=== PATIENT | female | born 1995 | race Caucasian/White ===

== ENCOUNTER 2016-08-05 23:01 | Emergency (ER) | payer BC ==
[2016-08-06 01:29] VITALS: BP 142/87
--- NOTE | 2016-08-08 15:08 | ED ---
Head Injury - HPI Summary HPI Summary: Pt stated that last night she fell down some stone steps and she hit her head on the last step. Pt worked a shift today. Pt denies LOC. Pt states that the spot is tender to touch. Pt states that when she coughs it can be painful ( head). She denies memory loss, confusion, visual disturbances, focal neuro deficits, or abnormal gait. She denies other health problems. She arrives today to make sure she does not have a concussion or something more serious. Denies blood thinners or other medications. No ROY or neck pain. - History Of Current Complaint Chief Complaint: EDHeadInjury Stated Complaint: FALL/HEAD INJURY Time Seen by Provider: 08/05/16 23:51 Hx Obtained From: Patient Mechanism Of Injury: Direct Blow, Fall From A Standing Position Onset/Duration: Started Days Ago Onset of Pain: Hours Severity Currently: Mild Severity Initially: Mild Pain Intensity: 0 Pain Scale Used: 0-10 Numeric Location of Head Injury: Occipital Location: Discrete At: - occipital Alleviating Factor(s): Rest, Ice - Risk Factors SDH Risk Factor: Negative - Allergies/Home Medications Allergies/Adverse Reactions: Allergies Allergy/AdvReac Type Severity Reaction Status Date / Time No Known Allergies Allergy Verified 11/30/14 07:53 PMH/Surg Hx/FS Hx/Imm Hx Previously Healthy: Yes - Immunization History Hx Pertussis Vaccination: No Immunizations Up to Date: Unable to Obtain/Confirm Infectious Disease History: Denies: Traveled Outside the [place] in Last 30 Days - Family History Known Family History: Positive: Cardiac Disease - Social History Occupation: Employed Full-time Lives: With Family Alcohol Use: Daily Alcohol Amount: 2-3 drins Hx Substance Use: No Substance Use Type: Reports: None Hx Tobacco Use: Yes Smoking Status (MU): Current Every Day Smoker Do You Chew or Dip Tobacco: No Have You Chewed or Dipped Tobacco in the LAST YEAR: No Review of Systems Constitutional: Negative Eyes: Negative ENT: Negative Respiratory: Negative Gastrointestinal: Negative Musculoskeletal: Negative Skin: Negative Positive: Headache - only with cough All Other Systems Reviewed And Are Negative: Yes Physical Exam Triage Information Reviewed: Yes Vital Signs On Initial Exam: Initial Vitals Temp Pulse Resp BP Pulse Ox 97.8 F 87 16 142/85 96 08/05/16 23:02 08/05/16 23:02 08/05/16 23:02 08/05/16 23:02 08/05/16 23:02 Vital Signs Reviewed: Yes Appearance: Positive: Well-Appearing, No Pain Distress, Well-Nourished Skin: Positive: Warm, Skin Color Reflects Adequate Perfusion Eyes: Positive: Normal, ROMÁN, Conjunctiva Clear ENT: Positive: TMs normal Respiratory/Lung Sounds: Positive: Clear to Auscultation, Breath Sounds Present Cardiovascular: Positive: Pulses are Symmetrical in both Upper and Lower Extremities Musculoskeletal: Positive: Strength/ROM Intact Neurological: Positive: Sensory/Motor Intact, Alert, Oriented to Person Place, Time, CN Intact II-III, Normal Gait, Speech Normal AVPU Assessment: Alert - [place] Coma Scale Best Eye Response: 4 - Spontaneous Best Motor Response: 6 - Obeys Commands Best Verbal Response: 5 - Oriented Coma Scale Total: 15 Diagnostics - Vital Signs Vital Signs Temp Pulse Resp BP Pulse Ox 08/06/16 00:17 98 F 87 16 142/87 08/05/16 23:02 97.8 F 87 16 142/85 96 - Laboratory Lab Statement: Any lab studies that have been ordered have been reviewed, and results considered in the medical decision making process. Head Injury Course/Dx Course Of Treatment: Patient arrives 24 hours after falling and hitting head. According to [facility] CT Head Rules, CT was NOT obtained d/t: GCS score >15 at 2h post injury. No suspected open or depressed skull fx, no sign of basal skull fx, no hemotympanum, raccoon eyes, Battles sign, CSF alexander-/rhinorrhea, no emesis after injury, age <64yo, no amnesia greater than 30 minutes prior to trauma, and mechanism of injury was minimal impact with no MVA or fall greater than 3 ft. Complete neuro exam completed and WNL. Normal head/face inspection with no cephalohematoma. Reflexes intact. EOMI, ROMÁN, visual acuity intact. No obvious confusion or memory loss per patient and family. MMSE OK. GCS 15. Patient oriented to person, place and date. No obvious deformity or signs of trauma. Finger to nose, heel to toe OK. Speech normal, facial symmetry, normal gait, CN II-III intact. Patient denies LOC. ROM, strength, reflexes in upper and lower extremity intact, sensation intact. Patient discharged with return precautions and post-concussive symptoms explained to patient. Patient agrees to follow up and return if needed. - Diagnoses Differential Diagnosis/HQI/PQRI: Cervical Sprain, Concussion With LOC, Concussion Without LOC, Contusion Provider Diagnoses: Head injury Discharge - Discharge Plan Condition: Stable Disposition: HOME Patient Education Materials: Head Injury (ED) Referrals: Francisco Bowles MD [Primary Care Provider] - Additional Instructions: Follow up this week with your doctor. If you develop any memory loss, confusion, worsening ROY or visual disturbances, come back to ED immediately. Brain rest for 24 hours.
== END 2016-08-06 00:36 | disposition home or self-care (01) ==
LOC: ED 23:01
DX: S09.90XA Unspecified injury of head, initial encounter (principal); W10.9XXA Fall (on) (from) unspecified stairs and steps, initial encounter; Y92.9 Unspecified place or not applicable; F17.210 Nicotine dependence, cigarettes, uncomplicated
CPT/HCPCS: 99281

== ENCOUNTER 2017-05-17 01:42 | Emergency (ER) | payer BC ==
[2017-05-17] MEDS ORDERED: Oseltamivir CAP* 75 MG CAP PO ONE (01:56)
[2017-05-17] MEDS ORDERED: Ondansetron ODT TAB* 4 MG PO ONE (01:56)
[2017-05-17] MEDS ORDERED: O ndansetron ODT 4MG 2TAB PRPK 4 MG PAK PO ONE (01:57)
--- NOTE | 2017-05-17 01:58 | ED ---
Influenza-Like Illness - HPI Summary HPI Summary: 22-year-old female presents with nausea and vomiting and cough for the past day. She states she has been having muscle aches and fevers. She admits to sore throat and sinus congestion. She admits to generalized abdominal pain. She denies any diarrhea. She denies any chest pain or shortness of breath. She has no medical conditions. She has tried some Tylenol with minimal relief. She states she has not been able to eat anything due to the vomiting. She denies anyone else being sick. - History of Current Complaint Chief Complaint: EDFluSymptoms Time Seen by Provider: 05/17/17 01:52 - Allergy/Home Medications Allergies/Adverse Reactions: Allergies Allergy/AdvReac Type Severity Reaction Status Date / Time No Known Allergies Allergy Verified 11/30/14 07:53 PMH/Surg Hx/FS Hx/Imm Hx Endocrine/Hematology History: Denies: Hx Anticoagulant Therapy Cardiovascular History: Denies: Hx Myocardial Infarction Infectious Disease History: No Infectious Disease History: Denies: Traveled Outside the [place] in Last 30 Days - Family History Known Family History: Positive: Cardiac Disease - Social History Alcohol Use: Daily Alcohol Amount: 2-3 drins Hx Substance Use: No Substance Use Type: Reports: None Hx Tobacco Use: Yes Smoking Status (MU): Current Every Day Smoker Review of Systems Positive: Fever, Fatigue Positive: Sore Throat, Nasal Discharge Negative: Chest Pain Positive: Cough. Negative: Shortness Of Breath Positive: Vomiting, Nausea All Other Systems Reviewed And Are Negative: Yes Physical Exam Triage Information Reviewed: Yes Vital Signs On Initial Exam: Initial Vitals Temp Pulse Resp BP Pulse Ox 97 F 118 22 143/76 98 05/17/17 01:48 05/17/17 01:48 05/17/17 01:48 05/17/17 01:48 05/17/17 01:48 Vital Signs Reviewed: Yes Appearance: Positive: Ill-Appearing Skin: Positive: Warm, Dry Head/Face: Positive: Normal Head/Face Inspection Eyes: Positive: Normal, EOMI, ROMÁN, Conjunctiva Clear ENT: Positive: Pharyngeal erythema, TMs normal, Uvula midline, Other - softr palate symmetric. Negative: Tonsillar swelling, Tonsillar exudate, Trismus, Muffled voice Neck: Positive: Supple, Nontender, No Lymphadenopathy. Negative: Nuchal Rigidity Respiratory/Lung Sounds: Positive: Clear to Auscultation, Breath Sounds Present Cardiovascular: Positive: Normal, RRR Abdomen Description: Positive: Nontender, Soft Bowel Sounds: Positive: Present Musculoskeletal: Positive: Normal Neurological: Positive: Normal Psychiatric: Positive: Normal Diagnostics - Vital Signs Vital Signs Temp Pulse Resp BP Pulse Ox 05/17/17 01:48 97 F 118 22 143/76 98 - Laboratory Lab Statement: Any lab studies that have been ordered have been reviewed, and results considered in the medical decision making process. Flu Symptom Course/Dx - Course Course Of Treatment: 22-year-old female presents with nausea and vomiting and cough for the past day. She states she has been having muscle aches and fevers. She admits to sore throat and sinus congestion. She admits to generalized abdominal pain. She denies any diarrhea. She denies any chest pain or shortness of breath. She has no medical conditions. She has tried some Tylenol with minimal relief. She states she has not been able to eat anything due to the vomiting. She denies anyone else being sick. on exam lungs CTA. abdomen soft nontender. pharynx erythematous, uvula midline, soft palate symmetric. will treat persumpatively as flu. gave zofran and tamiflu. patient understand and agrees with plan. - Diagnoses Differential Diagnosis/HQI/PQRI: Positive: Influenza, Pneumonia, Upper Respiratory Infection Provider Diagnoses: Influenza Discharge - Discharge Plan Condition: Good Disposition: HOME Prescriptions: Ondansetron ODT TAB* [Zofran 4 MG Odt TAB*] 4 mg PO Q6H PRN #20 tab.odt PRN Reason: Nausea Oseltamivir CAP* [Tamiflu CAP*] 75 mg PO BID #9 cap Patient Education Materials: Influenza (ED) Referrals: Francisco Bowles MD [Primary Care Provider] - Additional Instructions: Symptoms likely due to the flu Take Tamiflu twice for 5 days first dose given in ED Take Tylenol and ibuprofen for muscle aches and fever every 6 hours Use Zofran up two tablets every 6 hours for nausea as needed Saline rinse can be used multiple times a day for nasal congestion Use humidifier in room or place bowls of warm water around room for cough Try to drink fluids every hour and eat a small snack every 3 hours Follow up with primary within 5 days Return to ED if develop any new or worsening symptoms
[2017-05-17 02:05] VITALS: BP 143/76
== END 2017-05-17 02:08 | disposition home or self-care (01) ==
LOC: ED 01:42
DX: J11.1 Influenza due to unidentified influenza virus with other respiratory manifestations (principal); F17.200 Nicotine dependence, unspecified, uncomplicated
CPT/HCPCS: 99282; A9270-GY